=== PATIENT | male | born 1990 | race African-American/Black ===

== ENCOUNTER 2018-09-02 16:07 | Emergency (ER) | payer SELFPAY ==
[~2018-09-02] VITALS: Ht 185.4 cm; Wt 113.4 kg
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
--- NOTE | 2018-09-02 17:27 | NUR ---
ORTHO SHOE PLACED PER
== END 2018-09-02 18:27 | disposition home or self-care (01) ==
LOC: FSED 16:07
DX: S90.31XA Contusion of right foot, initial encounter (principal); W22.8XXA Striking against or struck by other objects, initial encounter; Y93.89 Activity, other specified; Y92.69 Other specified industrial and construction area as the place of occurrence of the external cause
CPT/HCPCS: 99284